=== PATIENT | female | born 1960 | race Caucasian/White ===

== ENCOUNTER 2019-03-09 12:34 | Emergency (ER) | payer OTHER ==
[2019-03-09 12:58] VITALS: BP 137/74; PULSE 68; O2SAT 97
[2019-03-09] MEDS ORDERED: XYLOCAINE 1% HCL 20 ML MDV IJ ONE (13:15)
--- NOTE | 2019-03-09 13:46 | ERPHSYRPT ---
- History of Present Illness Source: patient, family Exam Limitations: no limitations Patient Subjective Stated Complaint: States "I cut my finger on a push mower blade at 1200 today" Triage Nursing Assessment: Pt presents to ER with amputation of tip of right third digit, bleeding controlled. States cut finger today around 1200pm on push mower blade. Resp easy and unlabored. Pt is alert and oriented. States pain is throbbing and burning in finger 8/10 scale. 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 Occurred: just prior to arrival Method of Injury: incised Quality: constant Severity of Pain-Max: severe Severity of Pain-Current: severe Extremities Pain Location: 3rd finger: right (distal end of right middle finger) Modifying Factors: Improves With: nothing, movement Associated Symptoms: none Allergies/Adverse Reactions: No Known Drug Allergies Allergy (Unverified 03/09/19 12:58) Hx Tetanus, Diphtheria Vaccination/Date Given: Yes Hx Influenza Vaccination/Date Given: No Hx Pneumococcal Vaccination/Date Given: No Immunizations Up to Date: Yes - Review of Systems Constitutional: No Fever, No Chills Eyes: No Symptoms Ears, Nose, & Throat: No Symptoms Respiratory: No Cough, No Dyspnea Cardiac: No Chest Pain, No Edema, No Syncope Abdominal/Gastrointestinal: No Abdominal Pain, No Nausea, No Vomiting, No Diarrhea Genitourinary Symptoms: No Dysuria Musculoskeletal: Other (Avulsion of distal end of right middle finger on planter side. No damage to nail), No Back Pain, No Neck Pain Skin: Other (Avulsion of distal end of right middle finger on planter side. No damage to nail), No Rash Neurological: No Dizziness, No Focal Weakness, No Sensory Changes Psychological: No Symptoms Endocrine: No Symptoms All Other Systems: Reviewed and Negative - Past Medical History Pertinent Past Medical History: No - Past Surgical History Past Surgical History: Yes - Social History Smoking Status: Never smoker Exposure to second hand smoke: No Drug Use: none Patient Lives Alone: No - Female History Hx Now: No - Nursing Vital Signs Nursing Vital Signs: Initial Vital Signs Temperature 97.9 F 03/09/19 12:50 Pulse Rate 68 03/09/19 12:50 Respiratory Rate 18 03/09/19 12:50 Blood Pressure 137/74 03/09/19 12:50 O2 Sat by Pulse Oximetry 97 03/09/19 12:50 Pain Scale Pain Intensity 5 - Physical Exam General Appearance: alert Eyes, Ears, Nose, Throat Exam: moist mucous membranes Neck Exam: non-tender, supple Cardiovascular/Respiratory Exam: chest non-tender, normal breath sounds, regular rate/rhythm, no respiratory distress Abdominal Exam: non-tender, soft, no organomegaly, No guarding Back Exam: normal inspection, normal range of motion, No vertebral tenderness Shoulder Exam: normal inspection, non-tender Elbow/Forearm Exam: normal inspection Wrist Exam: normal inspection, non-tender Hand Exam: laceration (Avulsion of distal end of right middle finger on planter side. No damage to nail) Neuro/Tendon Exam: normal sensation, normal motor functions Mental Status Exam: alert, oriented x 3, cooperative Skin Exam: normal color, warm, dry, other (Avulsion of distal end of right middle finger on planter side. No damage to nail) SpO2 Interpretation: normal SpO2: 97 Procedures - Additional Procedures Progress: Right Middle finger digital block done with Lidocaine 1% 10 ml, for pain control , under aseptic precautions. No complications - Course Nursing assessment & vital signs reviewed: Yes Ordered Tests: Active Orders 24 hr Category Date Time Status Dressing Care ROUTINE Care 03/09/19 13:40 Active Medication Summary Discontinued Medications Generic Name Dose Route Start Last Admin Trade Name Yarelis PRN Reason Stop Dose Admin Lidocaine HCl 10 ml 03/09/19 13:15 03/09/19 14:15 Xylocaine 1% Hcl 20 Ml Mdv IJ 03/09/19 13:16 10 ml STAT ONE Administration Lidocaine HCl Confirm 03/09/19 14:13 Xylocaine 1% Hcl 20 Ml Mdv Administered 03/09/19 14:14 Dose 1 ml .ROUTE .STK-MED ONE - Progress Progress: improved Discussed with : Other Will see patient in: office Counseled pt/family regarding: diagnosis, need for follow-up - Departure Departure Disposition: Home Clinical Impression: Finger laceration Qualifiers: Encounter type: initial encounter Finger: middle finger Damage to nail status: without damage Foreign body presence: without foreign body Laterality: right Qualified Code(s): S61.212A - Laceration without foreign body of right middle finger without damage to nail, initial encounter Condition: Stable Critical Care Time: No Referrals: SADE HILL [Primary Care Provider] - Instructions: Wound Care (DC) Additional Instructions: See PCP in 2-3 days Prescriptions: Tramadol HCl 50 mg [Ultram 50 mg] 50 mg PO TID PRN #12 tablet PRN Reason: Pain
[2019-03-09] MEDS ORDERED: XYLOCAINE 1% HCL 20 ML MDV ONE (14:13)
== END 2019-03-09 15:14 | disposition home or self-care (01) ==
LOC: ED 12:34
DX: S61.212A Laceration without foreign body of right middle finger without damage to nail, initial encounter (principal); W26.8XXA Contact with other sharp object(s), not elsewhere classified, initial encounter; M79.644 Pain in right finger(s)
CPT/HCPCS: 96372; 99283